=== PATIENT | male | born 1970 | race Caucasian/White ===

== ENCOUNTER 2021-08-04 20:05 | Observation (INO) | payer BC ==
[2021-08-04] MEDS ORDERED: Ketorolac 30 MG/ML SDV IM ONE (20:18)
[2021-08-04] MEDS ORDERED: Dexamethasone 10 MG/ML SDV IM STA (20:18)
[2021-08-04] MEDS ORDERED: Diazepam 2 MG Tab PO ONE (20:18)
[2021-08-05] MEDS ORDERED: Albuterol/Ipratropium 3.0-0.5 MG/3 ML Neb Soln NEB PRN (01:01)
[2021-08-05] MEDS ORDERED: Ondansetron 4 MG Tab PO PRN (01:02)
[2021-08-05] MEDS: Morphine 2 MG/ML SYRINGE IVPUSH PRN ×3 (02:09→20:26)
[2021-08-05] MEDS ORDERED: Ondansetron 4 MG/2 ML SDV IVPUSH PRN (08:19)
[2021-08-05] MEDS ORDERED: Ondansetron 4 MG Tab.DIS PO PRN (08:19)
[2021-08-05] MEDS ORDERED: Ibuprofen 600 MG Tab PO PRN ×2 (08:19→10:46)
[2021-08-05] MEDS ORDERED: Docusate Sodium 100 MG Cap PO PRN (08:19)
[2021-08-05] MEDS: Levothyroxine 75 MCG Tab PO SCH (08:50)
[2021-08-05] MEDS: Dexamethasone 4 MG Tab PO SCH (08:50)
[2021-08-05] MEDS: amLODIPine 5 MG Tab PO SCH (08:56)
[2021-08-05 09:20] LABS: POTASSIUM,K 4.9 mmol/L (3.5-5.1)
[2021-08-05] MEDS: Acetaminophen/oxyCODONE 325-5 MG Tab PO SCH ×2 (11:26→18:29)
[2021-08-05] MEDS: Lidocaine 5% 700 MG Patch TRDERM SCH (11:27)
[2021-08-05] MEDS: Lactated Ringers 1,000 ML IV SCH ×2 (11:28→22:21)
[2021-08-05] MEDS: Docusate Sodium 100 MG Cap PO SCH ×2 (11:35→20:24)
[2021-08-05] MEDS: Pantoprazole 40 MG in Sodium Chloride 0.9% 10 ML IVPUSH SCH (13:44)
[2021-08-05] MEDS ORDERED: Ibuprofen 600 MG Tab PO SCH (14:00)
[2021-08-05] MEDS: hydrOXYzine HCl 25 MG Tab PO SCH (20:23)
[2021-08-05] MEDS: Metoprolol Succinate 25 MG Tab.ER PO SCH (20:25)
[2021-08-05] MEDS: atorvaSTATin 40 MG Tab PO SCH (20:25)
[2021-08-05] MEDS: Cyclobenzaprine 10 MG Tab PO PRN (23:39)
[2021-08-06] MEDS: Acetaminophen/oxyCODONE 325-5 MG Tab PO SCH ×3 (03:43→18:14)
[2021-08-06] MEDS: Levothyroxine 75 MCG Tab PO SCH (06:42)
[2021-08-06] MEDS: Lactated Ringers 1,000 ML IV SCH ×2 (06:45→16:29)
[2021-08-06] MEDS: Morphine 2 MG/ML SYRINGE IVPUSH PRN ×2 (06:53→13:15)
[2021-08-06 08:07] LABS: BLOOD UREA NITROGEN,BUN 30 mg/dL (7.0-18.0); CARBON DIOXIDE,CO2 26.3 mmol/L (21.0-32.0); CHLORIDE,CL 102 mmol/L (98-107); GLUCOSE RANDOM 101 mg/dL (74-106); SODIUM,NA 137 mmol/L (136-148)
[2021-08-06] MEDS: Dexamethasone 4 MG Tab PO SCH (08:29)
[2021-08-06] MEDS: Docusate Sodium 100 MG Cap PO SCH ×2 (08:30→21:57)
[2021-08-06] MEDS: amLODIPine 5 MG Tab PO SCH (08:30)
[2021-08-06] MEDS: Cyclobenzaprine 10 MG Tab PO PRN ×2 (08:41→18:14)
[2021-08-06] MEDS: Lidocaine 5% 700 MG Patch TRDERM SCH (10:54)
[2021-08-06] MEDS: Pantoprazole 40 MG in Sodium Chloride 0.9% 10 ML IVPUSH SCH (13:15)
[2021-08-06] MEDS: Enoxaparin 40 MG/0.4 ML Syringe SUBCUT SCH (16:28)
[2021-08-06] MEDS: atorvaSTATin 40 MG Tab PO SCH (21:57)
[2021-08-06] MEDS: Metoprolol Succinate 25 MG Tab.ER PO SCH (21:58)
[2021-08-06] MEDS: hydrOXYzine HCl 25 MG Tab PO SCH (21:58)
[2021-08-07] MEDS: Lactated Ringers 1,000 ML IV SCH ×3 (03:00→22:37)
[2021-08-07] MEDS: Acetaminophen/oxyCODONE 325-5 MG Tab PO SCH ×3 (03:01→18:45)
[2021-08-07] MEDS: Dexamethasone 4 MG Tab PO SCH (08:20)
[2021-08-07] MEDS: Docusate Sodium 100 MG Cap PO SCH ×3 (08:20→22:31)
[2021-08-07] MEDS: amLODIPine 5 MG Tab PO SCH (08:20)
[2021-08-07 08:32] LABS: BLOOD UREA NITROGEN,BUN 31 mg/dL (7.0-18.0); CARBON DIOXIDE,CO2 24.4 mmol/L (21.0-32.0); CHLORIDE,CL 101 mmol/L (98-107); GLUCOSE RANDOM 86 mg/dL (74-106); SODIUM,NA 135 mmol/L (136-148)
[2021-08-07] MEDS: Lidocaine 5% 700 MG Patch TRDERM SCH (10:49)
[2021-08-07] MEDS: Pantoprazole 40 MG in Sodium Chloride 0.9% 10 ML IVPUSH SCH (12:21)
[2021-08-07] MEDS: Ibuprofen 600 MG Tab PO SCH ×2 (16:10→22:37)
[2021-08-07] MEDS: Enoxaparin 40 MG/0.4 ML Syringe SUBCUT SCH (16:11)
[2021-08-07] MEDS: atorvaSTATin 40 MG Tab PO SCH (20:28)
[2021-08-07] MEDS: hydrOXYzine HCl 25 MG Tab PO SCH (20:28)
[2021-08-07] MEDS: Metoprolol Succinate 25 MG Tab.ER PO SCH (20:29)
[2021-08-08] MEDS: Acetaminophen/oxyCODONE 325-5 MG Tab PO SCH ×3 (02:40→18:43)
[2021-08-08] MEDS: Ibuprofen 600 MG Tab PO SCH ×4 (04:39→23:30)
[2021-08-08 08:59] LABS: CARBON DIOXIDE,CO2 26.7 mmol/L (21.0-32.0); POTASSIUM,K 4.6 mmol/L (3.5-5.1)
[2021-08-08] MEDS: amLODIPine 5 MG Tab PO SCH (10:09)
[2021-08-08] MEDS: Dexamethasone 4 MG Tab PO SCH (10:09)
[2021-08-08] MEDS: Docusate Sodium 100 MG Cap PO SCH (10:10)
[2021-08-08] MEDS: Lactated Ringers 1,000 ML IV SCH ×2 (10:10→20:34)
[2021-08-08] MEDS: Lidocaine 5% 700 MG Patch TRDERM SCH (10:13)
[2021-08-08] MEDS: Cyclobenzaprine 10 MG Tab PO PRN ×2 (12:04→20:32)
[2021-08-08] MEDS: Pantoprazole 40 MG in Sodium Chloride 0.9% 10 ML IVPUSH SCH (12:05)
[2021-08-08] MEDS: Enoxaparin 40 MG/0.4 ML Syringe SUBCUT SCH (16:07)
[2021-08-08] MEDS: Metoprolol Succinate 25 MG Tab.ER PO SCH (20:31)
[2021-08-08] MEDS: atorvaSTATin 40 MG Tab PO SCH (20:31)
[2021-08-08] MEDS: hydrOXYzine HCl 25 MG Tab PO SCH (20:32)
[2021-08-09] MEDS: Acetaminophen/oxyCODONE 325-5 MG Tab PO SCH ×3 (03:01→18:44)
[2021-08-09] MEDS: Lactated Ringers 1,000 ML IV SCH (06:34)
[2021-08-09] MEDS: Cyclobenzaprine 10 MG Tab PO PRN ×3 (06:36→22:24)
[2021-08-09] MEDS: Ibuprofen 600 MG Tab PO SCH ×4 (06:36→22:24)
[2021-08-09] MEDS: amLODIPine 5 MG Tab PO SCH (09:00)
[2021-08-09] MEDS: Dexamethasone 4 MG Tab PO SCH (09:00)
[2021-08-09] MEDS: Lidocaine 5% 700 MG Patch TRDERM SCH (10:51)
[2021-08-09] MEDS ORDERED: Dexamethasone 4 MG Tab PO ONE (12:00)
[2021-08-09] MEDS: Pantoprazole 40 MG Tab.CR PO SCH (12:13)
[2021-08-09] MEDS: Acetaminophen 500 MG Tab PO SCH ×2 (12:13→18:45)
[2021-08-09] MEDS: Enoxaparin 40 MG/0.4 ML Syringe SUBCUT SCH (16:16)
[2021-08-09] MEDS: Metoprolol Succinate 25 MG Tab.ER PO SCH (20:31)
[2021-08-09] MEDS: atorvaSTATin 40 MG Tab PO SCH (20:33)
[2021-08-09] MEDS: hydrOXYzine HCl 25 MG Tab PO SCH (22:17)
[2021-08-10] MEDS: Acetaminophen 500 MG Tab PO SCH ×4 (00:19→17:50)
[2021-08-10] MEDS: Acetaminophen/oxyCODONE 325-5 MG Tab PO SCH ×3 (03:00→18:52)
[2021-08-10] MEDS: Ibuprofen 600 MG Tab PO SCH ×5 (05:17→23:18)
[2021-08-10] MEDS: amLODIPine 5 MG Tab PO SCH (08:03)
[2021-08-10] MEDS: Dexamethasone 4 MG Tab PO SCH (08:04)
[2021-08-10] MEDS: Lidocaine 5% 700 MG Patch TRDERM SCH (10:45)
[2021-08-10] MEDS: Pantoprazole 40 MG Tab.CR PO SCH (11:54)
[2021-08-10] MEDS: Enoxaparin 40 MG/0.4 ML Syringe SUBCUT SCH (16:15)
[2021-08-10] MEDS: Docusate Sodium 100 MG Cap PO SCH (17:50)
[2021-08-10] MEDS: Cyclobenzaprine 10 MG Tab PO PRN (19:02)
[2021-08-10] MEDS: atorvaSTATin 40 MG Tab PO SCH (20:01)
[2021-08-10] MEDS: Metoprolol Succinate 25 MG Tab.ER PO SCH (20:01)
[2021-08-10] MEDS: hydrOXYzine HCl 25 MG Tab PO SCH (21:27)
[2021-08-11] MEDS: Acetaminophen 500 MG Tab PO SCH ×2 (00:10→06:27)
[2021-08-11] MEDS: Acetaminophen/oxyCODONE 325-5 MG Tab PO SCH ×2 (02:55→11:18)
[2021-08-11] MEDS: Ibuprofen 600 MG Tab PO SCH ×2 (05:16→11:00)
[2021-08-11] MEDS: Dexamethasone 4 MG Tab PO SCH (09:21)
[2021-08-11] MEDS: Docusate Sodium 100 MG Cap PO SCH (09:22)
[2021-08-11] MEDS: amLODIPine 5 MG Tab PO SCH (09:23)
[2021-08-11] MEDS: Cyclobenzaprine 10 MG Tab PO PRN (09:37)
[2021-08-11] MEDS: Pantoprazole 40 MG Tab.CR PO SCH (11:21)
[2021-08-11] MEDS: Lidocaine 5% 700 MG Patch TRDERM SCH (11:22)
[2021-08-11] MEDS ORDERED: Acetaminophen 500 MG Tab PO SCH (14:00)
[2021-08-11] MEDS ORDERED: Ibuprofen 600 MG Tab PO SCH (16:00)
[2021-08-11] MEDS: Enoxaparin 40 MG/0.4 ML Syringe SUBCUT SCH (16:16)
== END 2021-08-11 16:45 | disposition home or self-care (01) ==
LOC: MW.ED 20:05 → MW.MS 21:59
PROVIDERS: ADMIT Student in an Organized Health Care Education/Training Program; ATTEND Student in an Organized Health Care Education/Training Program
DX: M51.16 Intervertebral disc disorders with radiculopathy, lumbar region (principal); U07.1 COVID-19; I10 Essential (primary) hypertension; G47.30 Sleep apnea, unspecified; E66.9 Obesity, unspecified; N17.9 Acute kidney failure, unspecified; G62.9 Polyneuropathy, unspecified; Z87.891 Personal history of nicotine dependence; Z88.1 Allergy status to other antibiotic agents; Z79.899 Other long term (current) drug therapy
CPT/HCPCS: 36415; 72148; 80048; 80053; 83735; 84100; 85025; 87635; 96372; 96375; 96376; 97110; 97140; 97161; 97162; 97530; 99284; A9270; C9113; G0378; J1100; J1650; J1885; J2270; J7120; J8540; U0002

== ENCOUNTER 2023-11-19 07:00 | Emergency (ER) | payer OTHER ==
[2023-11-19] MEDS: Aspirin 81 MG Tab.Chew PO ONE (07:13)
[2023-11-19] MEDS: Tenecteplase 50 MG Kit IV ONE (07:24)
[2023-11-19] MEDS: Morphine 4 MG/ML Syringe IVPUSH ONE (07:27)
[2023-11-19] MEDS: Aspirin 81 MG Tab.Chew ONE (07:32)
[2023-11-19] MEDS: Sodium Chloride 0.9% 2.5 ML Syringe FLUSH PRN (07:34)
[2023-11-19] MEDS: Sodium Chloride 0.9% 1,000 ML IV STA (07:34)
[2023-11-19] MEDS: Tenecteplase 50 MG Kit ONE (07:34)
[2023-11-19] MEDS: Sodium Chloride 0.9% 10 ML Syringe FLUSH PRN (07:34)
[2023-11-19] MEDS: Clopidogrel 75 MG Tab PO ONE (07:34)
[2023-11-19 07:45] LABS: BASOPHILS ABSOLUTE AUTO 0.04 K/uL (0.00-0.20); BASOPHILS PERCENT AUTO 0.6 % (0.0-1.0); EOSINOPHILS ABSOLUTE AUTO 0.07 K/uL (0.00-0.45); EOSINOPHILS PERCENT AUTO 1.1 % (0.0-6.0); HEMATOCRIT 52.5 % (42.0-52.0); HEMOGLOBIN 18.4 g/dL (14.0-18.0); LYMPHOCYTES PERCENT AUTO 31.3 % (24.0-44.0); MEAN CORPUSCULAR HEMOGLOBIN 32.1 pg (28.0-32.0); MEAN CORPUSCULAR VOLUME 91.6 fL (83.0-99.0); MEAN PLATELET VOLUME 9.1 fL (9.4-12.4); MONOCYTES ABSOLUTE AUTO 0.71 K/uL (0.00-0.80); MONOCYTES PERCENT AUTO 11.1 % (0.0-8.0); NEUTROPHILS ABSOLUTE AUTO 3.57 K/uL (1.80-7.70); NEUTROPHILS PERCENT AUTO 55.9 % (41.0-71.0); PLATELET COUNT,PLT 214 K/uL (150-400); RED BLOOD CELL COUNT 5.73 M/uL (4.52-5.90); WHITE BLOOD CELL COUNT,WBC 6.39 K/uL (3.9-11.3)
[2023-11-19] MEDS: Morphine 2 MG/ML SYRINGE IVPUSH ONE (08:01)
[2023-11-19 08:07] LABS: A/G RATIO 1.1 (0.9-1.6); BILIRUBIN TOTAL 0.4 mg/dL (0.2-1.0); CALCIUM 10.1 mg/dL (8.5-10.1); CARBON DIOXIDE,CO2 25.7 mmol/L (21.0-32.0); CREATININE 1.8 mg/dL (0.8-1.3); EST CRCL DRUG DOSING (CG) 50.55 mL/min; POTASSIUM,K 3.5 mmol/L (3.5-5.1); PROTEIN TOTAL,TP 7.5 g/dL (6.4-8.2)
[2023-11-19] MEDS: Heparin Sodium/0.45% NaCl 500 ML IV SCH (08:28)
[2023-11-19] MEDS: Heparin Sodium 5,000 Units/ML Vial IVPUSH ONE (08:31)
== END 2023-11-19 08:50 ==
LOC: MW.ED 07:00
DX: I21.9 Acute myocardial infarction, unspecified (principal); I10 Essential (primary) hypertension; E66.9 Obesity, unspecified; Z88.0 Allergy status to penicillin; Z79.890 Hormone replacement therapy; Z79.899 Other long term (current) drug therapy; Z68.41 Body mass index [BMI] 40.0-44.9, adult; Z75.8 Other problems related to medical facilities and other health care
CPT/HCPCS: 36415; 71045; 80053; 84484; 85025; 85730; 93005; 96374; 96375; 99285; A9270; J1644; J2270; J3101; J3490; J7030; 93010; 99291